=== PATIENT | male | born 1970 | race Caucasian/White ===

== ENCOUNTER 2021-05-10 14:20 | Emergency (ER) | payer OTHER, SELFPAY ==
--- NOTE | ~2021-05-10 | XR_ITS ---
XR knee LT 3V 05/10/2021 17:15 Indication: Left knee pain and swelling Procedure: 3 views left knee Comparison: No prior studies for comparison. Findings: There is a moderate joint effusion. No acute fracture, subluxation or dislocation. No signi ficant joint space narrowing. Osteopenia. Impression: 1: Moderate joint effusion. Reviewed, dictated and finalized at location A. OR STORE MANAGER Impression: 1: Moderate joint effusion.
[2021-05-10 14:21] VITALS: BP 160/100; PULSE 99; RESP 20; TEMP 36.4; O2SAT 98
[2021-05-10 17:05] VITALS: BP 148/101; PULSE 81; RESP 14; TEMP 36.7; O2SAT 96
--- NOTE | 2021-05-10 18:52 | ED.LOWEXIN ---
HPI - Extremity Injury (Lower) General Chief Complaint: Extremity Injury, Lower Stated Complaint: L Knee Injury Time Seen by Provider: 05/10/21 17:01 Source: patient Mode of arrival: ambulatory Limitations: no limitations History of Present Illness HPI Narrative: 51-year-old male Patient arrives ambulatory using crutches with a left knee injury Patient says that he was at work carrying a heavy fly wheel down stairs and he missed a step and landed awkwardly and wrenched his left knee Since that time he has been unable to fully extend and has experienced progressive swelling He is able to bear weight is just painful No other injuries or concerns Related Data Allergies Allergy/AdvReac Type Severity Reaction Status Date / Time No Known Allergies Allergy Verified 09/11/16 21:32 Review of Systems Cardiovascular: Cardiovascular: Denies chest pain Gastrointestinal: Gastrointestinal: Denies abdominal pain Musculoskeletal: Musculoskeletal: Denies back pain, Reports arthralgias and Reports joint swelling Neurologic: Denies focal weakness and Denies numbness Exam Const: General: healthy appearing, no acute distress and alert Orientation/consciousness: patient oriented x3 HENMT: Head: normal to inspection, no contusions, no hematomas and no lacerations Resp: Effort & Inspection: normal respiratory effort and not labored Skin: General skin exam: normal color Rashes: no rashes Neuro: General: patient oriented x3 and moves all extremities Extrem: Other: Left knee has a joint effusion There is some diffuse tenderness with palpation which does seem to be most pronounced at the upper patella laterally and there may be defect there I could not detect any varus valgus laxity or instability Questionable positive drawer Course Course Emergency Course: Discussed with patient that he need crutches and immobilizer for several days and a reexamination by Ortho after things calm down a little bit, possibly an arthrocentesis, possibly an MRI for further delineation Vital Signs Vital signs: Vital Signs Temperature 36.4 C 05/10/21 14:21 Pulse Rate 99 05/10/21 14:21 Respiratory Rate 20 05/10/21 14:21 Blood Pressure 160/100 H 05/10/21 14:21 Pulse Oximetry 98 05/10/21 14:21 Temperature 36.7 C 05/10/21 17:05 Pulse Rate 81 05/10/21 17:05 Respiratory Rate 14 05/10/21 17:05 Blood Pressure 148/101 H 05/10/21 17:05 Pulse Oximetry 96 05/10/21 17:05 Discharge Plan Discharge Clinical Impression: Acute internal derangement of knee Patient Disposition: Home, Self-Care Condition: Stable Instructions: ACL Injury (ED), Knee Immobilizer (ED), Hemarthrosis (ED) Additional Instructions: Keep the immobilizer on as much as you can and use the crutches You can unwrap the knee to put an ice pack on it for 10 or 15 minutes 3 or 4 times a day Prescriptions: New hydrocodone-acetaminophen 5-325 mg tablet 1 tablet PO Q8H PRN (Reason: pain) Qty: 10 RF: 0 Follow-up/Referrals: Juanojse Baldwin MD [Physician] - (Call in the a.m. and they will get you an appointment this week) Caitlyn,CATARINA Soto [Primary Care Provider] - Stand Alone Forms: Work/School Release IP
[2021-05-10 19:34] VITALS: BP 154/99; PULSE 92; RESP 18; O2SAT 97
== END 2021-05-10 19:34 | disposition home or self-care (01) ==
PROVIDERS: Emergency Provider Emergency Medicine; PCP Physician Assistant
DX: M23.90 Unspecified internal derangement of unspecified knee (principal); S89.92XA Unspecified injury of left lower leg, initial encounter; X50.9XXA Other and unspecified overexertion or strenuous movements or postures, initial encounter
CPT/HCPCS: 73562; 99283

== ENCOUNTER 2021-05-31 16:16 | Outpatient (CLI) | payer OTHER, SELFPAY ==
--- NOTE | ~2021-05-31 | XR_ITS ---
EXAMINATION: XR abdomen/kub 1V EXAM DATE: 05/31/2021 16:51 INDICATION: Foreign body in abdomen region. Approximately 6 years ago a ball-peen hammer broke off i n patient's abdomen; determining if the patient can have a MRI or CT? TECHNIQUE: Frontal projection(s) of the abdomen for interpretation. Correlation is made to CT report 12/30/2010. FINDINGS: There is triangular-shaped metallic foreign body projecting over the L2 vertebral body, c omposition unknown. Several surgical clips adjacent to the cecal base. Moderate amount of colonic sto ol and gas. No small bowel dilation. Mild bony degenerative changes. IMPRESSION: Metallic foreign body projecting over mid abdomen. Reviewed, dictated and finalized at location A. RNS PROCESSOR
== END 2021-05-31 16:17 ==
PROVIDERS: Visit Provider Orthopaedic Surgery
DX: S30.851A Superficial foreign body of abdominal wall, initial encounter (principal)
CPT/HCPCS: 74018

== ENCOUNTER 2023-11-14 09:55 | Emergency (ER) | payer OTHER, SELFPAY ==
[2023-11-14 10:14] VITALS: BP 195/126; PULSE 89; RESP 16; TEMP 37.2; O2SAT 99
--- NOTE | 2023-11-14 10:16 | ED.BACK ---
HPI - Back Pain/Injury General Chief Complaint: Back Pain/Injury Stated Complaint: lower back pain Time Seen by Provider: 11/14/23 10:16 Source: patient Mode of arrival: ambulatory Limitations: no limitations History of Present Illness HPI Narrative: 53 yo M presents with c/o pain to R hip, low back since last night. Started after lifting his 120lb dog. Ambulatory with steady gait. NO pain at rest. With movement has shooting pain up back and down R leg. No weakness to LEs. has not taken any OTC meds to treat pain. BP elevated today. Ben CP, SOB. Has been off medications for several months. Lost insurance and PCP would not fill medications. All systems reviewed and negative except as noted above. Related Data Allergies Allergy/AdvReac Type Severity Reaction Status Date / Time No Known Allergies Allergy Verified 11/14/23 09:57 Review of Systems Review of Systems: CONSTITUTIONAL: Denies fever, chills, or sweats. EYES: Denies visual changes, redness, or discharge. ENT: Denies rhinorrhea, congestion, sore throat, or otalgia. CARDIOVASCULAR: Denies chest pain, palpitations, or edema. RESPIRATORY: Denies cough or dyspnea. GASTROINTESTINAL: Denies abdominal pain, nausea, vomiting, or diarrhea. GENITOURINARY: Denies dysuria or hematuria. SKIN: Denies rash or itching. MUSCULOSKELETAL: reports right-sided low back pain and hip. Denies joint pain, or myalgia. NEUROLOGIC: Denies headache, numbness, or weakness. PSYCHIATRIC: Denies anxiety or depression. All other systems reviewed are negative, except as documented in HPI. [facility] Past Medical History Medical History (Updated 11/15/23 @ 00:01 by Prema Damon) Left knee injury Family History Family History Mother Diabetes mellitus Father Hypertension COPD (chronic obstructive pulmonary disease) Age related osteoporosis Sibling Diabetes mellitus Cervical cancer Social History Social History (System 08/01/21 @ 08:48 by Benny Sandra) Smoking status: Current every day smoker Tobacco type: cigarettes Smoking end date: 05/28/10 Alcohol intake: current Substance use: never Substance use type: does not use Comments At time of signature, agree with nursing past medical, surgical, social and family history. There is no relevant family history pertinent to the presenting complaint. Exam Narrative: GENERAL: This is a well-nourished, well-developed patient, in no apparent distress. HEAD: normocephalic, atraumatic. EYES: PERRL. Sclera clear/white. Vision is grossly intact. EARS: External ears normal NOSE: External nose normal NECK: Neck supple, non-tender without lymphadenopathy, masses or thyromegaly. CARDIOVASCULAR: Regular rate and rhythm without murmurs, gallops, or rubs. RESPIRATORY: Clear to auscultation. Breath sounds equal bilaterally. No wheezes, rales, or rhonchi. SKIN: warm, Dry, intact with no suspicious lesions or rash, good texture and turgor. NEURO: awake, alert, and oriented to person, place and time. There were no obvious focal neurologic abnormalities. EXTREMITIES: No joint tenderness, effusion, or edema noted. No calf tenderness. Negative Homans sign bilaterally. BACK: tenderness to right SI. Positive right straight leg raise. Lower extremity strength 5/5 bilaterally. Course Course Level of Care: Express Care Visit Vital Signs Vital signs: Vital Signs Temperature 37.2 C 11/14/23 10:14 Pulse Rate 89 11/14/23 10:14 Respiratory Rate 16 11/14/23 10:14 Blood Pressure 195/126 H 11/14/23 10:14 Pulse Oximetry 99 11/14/23 10:14 Oxygen Delivery Room Air 11/14/23 10:14 Temperature 37.2 C 11/14/23 10:14 Pulse Rate 89 11/14/23 10:14 Respiratory Rate 16 11/14/23 10:14 Blood Pressure 195/126 H 11/14/23 10:14 Pulse Oximetry 99 11/14/23 10:14 Oxygen Delivery Room Air 11/14/23 10:14 Reviewed, BP elevated. Patient off medicat
== END 2023-11-14 10:41 | disposition left against medical advice (07) ==
PROVIDERS: Emergency Provider Nurse Practitioner Family; PCP Physician Assistant
DX: M54.41 Lumbago with sciatica, right side (principal); I10 Essential (primary) hypertension; Z87.891 Personal history of nicotine dependence
CPT/HCPCS: 99213; G0463